=== PATIENT | female | born 1950 | race Caucasian/White ===

== ENCOUNTER 2016-06-03 22:35 | Emergency (ER) | payer SELFPAY ==
[~2016-06-03] VITALS: Ht 162.6 cm; Wt 77.1 kg
[~2016-06-03 22:35] MED LIST: IBUP-1955 PO; TRAM50TA2 PO
--- NOTE | 2016-06-04 01:18 | NUR ---
Patient discharged to home in stable conditon WITH RELATIVE TAKING PT HOME. Written and verbal after care instructions given. Patient verbalizes understanding of instructions. WALKED OUT OF ER USING WALKER
[2016-06-04 01:19] VITALS: BP 120/60
== END 2016-06-04 01:19 | disposition home or self-care (01) ==
LOC: ER 22:35
DX: S93.601A Unspecified sprain of right foot, initial encounter (principal); S89.91XA Unspecified injury of right lower leg, initial encounter; E78.00 Pure hypercholesterolemia, unspecified; Z88.0 Allergy status to penicillin; Z88.8 Allergy status to other drugs, medicaments and biological substances; W01.0XXA Fall on same level from slipping, tripping and stumbling without subsequent striking against object, initial encounter; Y93.89 Activity, other specified; Y92.89 Other specified places as the place of occurrence of the external cause; Y99.8 Other external cause status
CPT/HCPCS: 73630; A4663